=== PATIENT | female | born 1980 | race Caucasian/White ===

== ENCOUNTER 2018-09-17 06:03 | Day surgery (SDC) | payer OTHER ==
[2018-09-17] MEDS ORDERED: LACTATED RINGERS 1,000 ML IV ONE (06:27)
[2018-09-17 06:40] LABS: HCG UR QUAL NEGATIVE
[2018-09-17] MEDS ORDERED: SCOPOLAMINE PATCH TOP ONE (07:07)
[2018-09-17] MEDS ORDERED: BUPIVACAINE 0.5%-EPI 1:200000 PF 30 ML VIAL ONE (07:26)
--- NOTE | 2018-09-17 07:57 | ANESTHESIA ---
Pre-Anesthesia VS, & Labs - Diagnosis Prevetion of - Procedure BTL with Implant removal Vital Signs: Temp Pulse Resp BP Pulse Ox 36.3 C L 64 18 120/70 100 09/17/18 06:40 09/17/18 06:40 09/17/18 06:40 09/17/18 06:40 09/17/18 06:40 Height 5 ft 4 in Weight (kg) 54 kg - Is Patient ?: No - Lab Results Lab results reviewed: Yes Home Medications and Allergies Home Medications: Ambulatory Orders Acetaminophen [Tylenol] 650 mg PO Q6H PRN 09/04/18 Acetaminophen [Tylenol] 650 mg PO Q6H PRN 09/04/18 Allergies/Adverse Reactions: Allergies Allergy/AdvReac Type Severity Reaction Status Date / Time Penicillins Allergy Unknown Verified 09/04/18 10:09 Anes History & Medical History - Anesthetic History Anesthesia Complications: reports: No previous complications Family history of Anesthesia Complications: Denies - Medical History Cardiovascular: reports: None Pulmonary: reports: None Gastrointestinal: reports: None Urinary: reports: Retention Neuro: reports: None Musculoskeletal: reports: None Endocrine/Autoimmune: reports: None Skin: reports: None, Psoriasis Smoking Status: Current every day smoker Psychosocial: reports: No issues indicated Exam General: Alert, Oriented x3, Cooperative, No acute distress Dental: WNL Mouth Openin Fingerbreadth Neck Mobility: Normal Mallampati classification: I Thyromental Distance: 4-6 cm Respiratory: Lungs clear Cardiovascular: Regular rate Mental/Cognitive Status: Alert/Oriented X3 Cognitive Status: Within normal limits Plan Anesthesia Type: General Consent for Procedure(s) Verified and Reviewed: Yes Code Status: Attempt Resuscitation ASA classification: 2-Mild systemic disease Is this case an emergency?: No
[2018-09-17] MEDS ORDERED: BUPIVACAINE 0.5%-EPI 1:200000 PF 30 ML VIAL SUBQ ONE (08:15)
[2018-09-17] MEDS ORDERED: GLYCOPYRROLATE 1 MG/5 ML VIAL IVP ONE (08:30)
[2018-09-17] MEDS ORDERED: DEXAMETHASONE 4 MG/ML VIAL IVP ONE (08:30)
[2018-09-17] MEDS ORDERED: PROPOFOL 200 MG/20 ML VIAL IVP ONE (08:30)
[2018-09-17] MEDS ORDERED: LIDOCAINE-MPF 2% 5 ML VIAL IM ONE (08:30)
[2018-09-17] MEDS ORDERED: ROCURONIUM 50 MG/5 ML VIAL IVP ONE (08:30)
[2018-09-17] MEDS ORDERED: fentaNYL 100 MCG/2 ML VIAL IVP ONE (08:30)
[2018-09-17] MEDS ORDERED: KETOROLAC 30 MG/ML VIAL IVP ONE (08:30)
[2018-09-17] MEDS ORDERED: HYDROcod/ACETAM 10 MG/325 MG TABLET PO PRN (08:32)
--- NOTE | 2018-09-17 08:36 | OPERATIVE REPORT ---
Operative Report - General Procedure Date: 09/17/18 Planned Procedure: Laparoscopic bilateral salpingectomies Nexplanon removal Pre-Op Diagnosis: Undesired fertility Procedure Performed: Same as above Post Op Diagnosis: Same as above - Procedure Note Primary Surgeon: Jabari Secondary Surgeon: Alec Anesthesia Provider: Keli Anesthesia Technique: General ET tube Pathology: Portions of both fallopian tubes Indications: Undesired fertility Findings: Exam under anesthesia: The uterus was of normal size shape and consistency and anteverted. The adnexa were normal. Operative findings: The uterus, tubes, ovaries, anterior and posterior cul-de-sacs, liver edge and gallbladder were all within normal limits. - Other Other Information/Narrative: After induction of adequate general oral endotracheal anesthesia, patient was placed in low lithotomy stirrups and prepped and draped in the usual sterile fashion. Timeout was performed. A speculum was placed in the vagina. Hulka tenaculum was used to grasp the cervix. Attention was turned to the abdomen, where the umbilicus was infiltrated with 5 cc of 0.5% Marcaine. A midline stab incision was made. A Veress needle was ins erted into the abdominal cavity, its position verified by hanging drop technique. The abdomen was insufflated to 2L of carbon dioxide. The Veress needle was removed and replaced by the 5mm laparoscopic trocar and sleeve with the laparoscope in place, allowing direct visualization of entry into the abdomen. The trocar was removed and replaced by the laparoscope, which was used to view findings previously noted. Right and left lower quadrant trocar sites were chosen lateral to the inferior epigastric vessels and infiltrated with 5 cc of 0.5% Marcaine each. Stab incisions were made and 5-mm trocars inserted under direct visualization. Each tube was divided from the mesosalpinx with cutting coagulating forceps and removed through one of the 5-mm trocars. Hemostasis was judged adequate at the conclusion. Instruments were withdrawn from the abdomen under direct visualization, and the incisions were closed with Dermabond. Instruments were withdrawn from the vagina. The right arm was exposed and the Nexplanon palpated. The area was prepped with betadine. The area was infiltrated with 3cc of 1% lidocaine. A stab incision was made over the capsule and the capsule removed with a hemostat. The incision was closed with a bandaid. The patient was awakened and take to the recovery room in stable condition.
[2018-09-17 09:40] VITALS: BP 123/81
== END 2018-09-17 06:04 | disposition home or self-care (01) ==
LOC: SDS 06:03
PROVIDERS: ATTEND Obstetrics & Gynecology
PROC: 0UT74ZZ Resection of Bilateral Fallopian Tubes, Percutaneous Endoscopic Approach (ICD-10-PCS; principal; 2018-09-17 07:30)
DX: Z30.2 Encounter for sterilization (principal); R33.9 Retention of urine, unspecified; L40.9 Psoriasis, unspecified; F17.290 Nicotine dependence, other tobacco product, uncomplicated
CPT/HCPCS: 58670; 81025; J3490; J7120